=== PATIENT | female | born 1955 | race African-American/Black ===

== ENCOUNTER 2020-05-05 19:37 | Emergency (ER) | payer MEDICARE ==
[~2020-05-05] VITALS: Ht 170.2 cm; Wt 60.0 kg
[2020-05-05 19:46] VITALS: BP 180/94
== END 2020-05-05 21:37 | disposition home or self-care (01) ==
LOC: ER 19:37
DX: K13.0 Diseases of lips (principal); Z91.81 History of falling
CPT/HCPCS: 99282